=== PATIENT | male | born 1980 | race African-American/Black ===

== ENCOUNTER 2022-08-10 20:55 | Inpatient (IN) | payer OTHER ==
[2022-08-10 21:24] VITALS: BMI 30.6
[2022-08-10] MEDS ORDERED: IBUPROFEN 600 MG TABLET (FP) PO PRN (21:50)
[2022-08-10] MEDS ORDERED: BISMUTH SUBSALICYLATE 524 MG/30 ML PO PRN (21:50)
[2022-08-10] MEDS ORDERED: POLYETHYLENE GLYCOL (HEALTHYLAX) 3350 17 GM PACKET PO PRN (21:50)
[2022-08-10] MEDS ORDERED: NALOXONE HCL (KLOXXADO) 8 MG SPRAY NS PRN (21:50)
[2022-08-10] MEDS ORDERED: LOPERAMIDE HCL 2 MG CAPSULE PO PRN (21:50)
[2022-08-10] MEDS ORDERED: BENZOCAINE/MENTHOL (CHLORASEPTIC ) LOZENGE MM PRN (21:50)
[2022-08-10] MEDS ORDERED: DICYCLOMINE HCL 10 MG CAPSULE PO PRN (21:50)
[2022-08-10] MEDS ORDERED: MAG HYDROX/AL HYDROX/SIMETH 30 ML UNIT-DOSE CUP PO PRN (21:50)
[2022-08-10] MEDS ORDERED: hydrOXYzine PAMOATE 25 MG CAPSULE (FP) PO PRN (21:50)
[2022-08-10] MEDS ORDERED: MAGNESIUM HYDROX 2400MG/30ML ORAL SUSPENSION 30 ML CUP PO PRN (21:50)
[2022-08-10] MEDS ORDERED: ACETAMINOPHEN 325 MG TABLET (FP) PO PRN ×2 (21:50)
[2022-08-10] MEDS ORDERED: METHOCARBAMOL 500 MG TABLET PO PRN (21:50)
[2022-08-10] MEDS ORDERED: IBUPROFEN 400 MG TABLET (FP) PO PRN (21:50)
[2022-08-10] MEDS ORDERED: ONDANSETRON *ODT* 4 MG TABLET SL PRN (21:50)
[2022-08-10] MEDS ORDERED: NICOTINE POLACRILEX 2 MG GUM BUC PRN (21:50)
[2022-08-10] MEDS: THIAMINE HCL 100 MG TABLET (FP) PO SCH (23:42)
[2022-08-10] MEDS: MELATONIN 5 MG TABLETS PO SCH (23:42)
[2022-08-11] MEDS: NICOTINE 14 MG/24 HOURS TOPICAL PATCH TD SCH (10:24)
[2022-08-11] MEDS: PRENATAL VITAMINS W/ FOLIC ACID TABLET (FP) PO SCH (10:24)
[2022-08-11 16:01] LABS: ALBUMIN 3.2 g/dl (3.4-5.0); BLOOD UREA NITROGEN 16.2 mg/dL (7-18); CREATININE 1.2 mg/dL (0.55-1.3)
[2022-08-11 16:02] LABS: CALCIUM 9.1 mg/dL (8.5-10.1)
[2022-08-11 16:04] LABS: BILIRUBIN,TOTAL 0.3 mg/dL (0.2-1); TOT PROT 6.1 g/dl (6.4-8.2)
[2022-08-11 16:10] LABS: HEMATOCRIT 41.1 % (35.4-49); HEMOGLOBIN 13.6 GM/dL (11.7-16.9); MCH 32.2 pg (25.7-33.7); MCHC 33.1 g/dl (32.0-35.9); MEAN CELL VOLUME 97.2 fl (80-96); PLATELET COUNT 253 10^3/uL (134-434); RBC 4.23 M/mm3 (4.00-5.60); RDW 13.7 % (11.9-15.9); WHITE BLOOD COUNT 5.4 K/mm3 (4.0-10.0)
[2022-08-11 21:28] VITALS: RESP 18; TEMP 97.3
[2022-08-11] MEDS ORDERED: QUEtiapine FUMARATE 100 MG TABLET (FP) PO SCH (22:00)
[2022-08-11 22:43] VITALS: BP 168/96; PULSE 75
[2022-08-11] MEDS: MELATONIN 5 MG TABLETS PO SCH (22:49)
[2022-08-11] MEDS: THIAMINE HCL 100 MG TABLET (FP) PO SCH (22:49)
[2022-08-12] MEDS: PRENATAL VITAMINS W/ FOLIC ACID TABLET (FP) PO SCH (09:30)
[2022-08-12] MEDS: NICOTINE 14 MG/24 HOURS TOPICAL PATCH TD SCH (09:31)
== END 2022-08-12 10:56 | disposition home or self-care (01) | DRG 774 ==
LOC: YASAS 20:55 → Y6N 21:42 → UNDOADMIN 21:42 → Y3N 23:26 → Y6N 23:26
PROVIDERS: ADMIT Allergy & Immunology; ATTEND Family Medicine
PROC: HZ2ZZZZ Detoxification Services for Substance Abuse Treatment (ICD-10-PCS; principal; 2022-08-10)
DX: F10.20 Alcohol dependence, uncomplicated (principal); F14.20 Cocaine dependence, uncomplicated; F16.20 Hallucinogen dependence, uncomplicated; F12.20 Cannabis dependence, uncomplicated; F17.210 Nicotine dependence, cigarettes, uncomplicated; F19.24 Other psychoactive substance dependence with psychoactive substance-induced mood disorder; F43.10 Post-traumatic stress disorder, unspecified; E11.9 Type 2 diabetes mellitus without complications; M54.50 Low back pain, unspecified; Z91.199 Patient's noncompliance with other medical treatment and regimen due to unspecified reason
CPT/HCPCS: 36415; 80053; 85027; 86780; 87811; C9803-CS; U0003; U0005

== ENCOUNTER 2022-08-20 04:28 | Inpatient (IN) | payer OTHER ==
[2022-08-20 05:21] VITALS: RESP 18; BMI 29.5
[2022-08-20] MEDS ORDERED: ACETAMINOPHEN 325 MG TABLET (FP) PO PRN ×2 (05:28)
[2022-08-20] MEDS ORDERED: MAG HYDROX/AL HYDROX/SIMETH 30 ML UNIT-DOSE CUP PO PRN (05:28)
[2022-08-20] MEDS ORDERED: NICOTINE POLACRILEX 2 MG GUM BUC PRN (05:28)
[2022-08-20] MEDS ORDERED: LOPERAMIDE HCL 2 MG CAPSULE PO PRN (05:28)
[2022-08-20] MEDS ORDERED: ONDANSETRON *ODT* 4 MG TABLET SL PRN (05:28)
[2022-08-20] MEDS ORDERED: IBUPROFEN 600 MG TABLET (FP) PO PRN (05:28)
[2022-08-20] MEDS ORDERED: METHOCARBAMOL 500 MG TABLET PO PRN (05:28)
[2022-08-20] MEDS ORDERED: hydrOXYzine PAMOATE 25 MG CAPSULE (FP) PO PRN (05:28)
[2022-08-20] MEDS ORDERED: BISMUTH SUBSALICYLATE 524 MG/30 ML PO PRN (05:28)
[2022-08-20] MEDS ORDERED: MAGNESIUM HYDROX 2400MG/30ML ORAL SUSPENSION 30 ML CUP PO PRN (05:28)
[2022-08-20] MEDS ORDERED: IBUPROFEN 400 MG TABLET (FP) PO PRN (05:28)
[2022-08-20] MEDS ORDERED: BENZOCAINE/MENTHOL (CHLORASEPTIC ) LOZENGE MM PRN (05:28)
[2022-08-20] MEDS ORDERED: DICYCLOMINE HCL 10 MG CAPSULE PO PRN (05:28)
[2022-08-20] MEDS ORDERED: NALOXONE HCL (KLOXXADO) 8 MG SPRAY NS PRN (05:28)
[2022-08-20] MEDS ORDERED: POLYETHYLENE GLYCOL (HEALTHYLAX) 3350 17 GM PACKET PO PRN (05:28)
[2022-08-20 06:10] VITALS: BP 130/82; PULSE 78; TEMP 97.5
[2022-08-20] MEDS ORDERED: NICOTINE 14 MG/24 HOURS TOPICAL PATCH TD SCH (10:00)
[2022-08-20] MEDS ORDERED: PRENATAL VITAMINS W/ FOLIC ACID TABLET (FP) PO SCH (10:00)
[2022-08-20 11:59] LABS: HEMATOCRIT 41.1 % (35.4-49); HEMOGLOBIN 13.6 GM/dL (11.7-16.9); MCH 32.1 pg (25.7-33.7); MCHC 33.2 g/dl (32.0-35.9); MEAN CELL VOLUME 96.8 fl (80-96); PLATELET COUNT 250 10^3/uL (134-434); RBC 4.25 M/mm3 (4.00-5.60); RDW 13.4 % (11.9-15.9)
[2022-08-20 13:31] LABS: CREATININE 1.4 mg/dL (0.55-1.3)
[2022-08-20 13:33] LABS: TOT PROT 6.6 g/dl (6.4-8.2)
[2022-08-20 13:41] LABS: BLOOD UREA NITROGEN 17.9 mg/dL (7-18)
[2022-08-20 13:42] LABS: ALBUMIN 3.5 g/dl (3.4-5.0)
[2022-08-20 13:45] LABS: CALCIUM 9.7 mg/dL (8.5-10.1)
[2022-08-20 13:55] LABS: BILIRUBIN,TOTAL 0.5 mg/dL (0.2-1)
[2022-08-20] MEDS ORDERED: MELATONIN 5 MG TABLETS PO SCH (22:00)
[2022-08-20] MEDS ORDERED: THIAMINE HCL 100 MG TABLET (FP) PO SCH (22:00)
== END 2022-08-20 11:20 | disposition home or self-care (01) | DRG 774 ==
LOC: YASAS 04:28 → Y6N 05:39
PROVIDERS: ADMIT Allergy & Immunology; ATTEND Allergy & Immunology
PROC: HZ2ZZZZ Detoxification Services for Substance Abuse Treatment (ICD-10-PCS; principal; 2022-08-20)
DX: F10.230 Alcohol dependence with withdrawal, uncomplicated (principal); F14.20 Cocaine dependence, uncomplicated; F12.20 Cannabis dependence, uncomplicated; F16.90 Hallucinogen use, unspecified, uncomplicated; F17.210 Nicotine dependence, cigarettes, uncomplicated; F19.24 Other psychoactive substance dependence with psychoactive substance-induced mood disorder; F41.9 Anxiety disorder, unspecified; E11.9 Type 2 diabetes mellitus without complications; Z79.84 Long term (current) use of oral hypoglycemic drugs; M54.50 Low back pain, unspecified; G89.29 Other chronic pain; Z28.310 Unvaccinated for COVID-19; Z28.9 Immunization not carried out for unspecified reason; Z91.199 Patient's noncompliance with other medical treatment and regimen due to unspecified reason; Z59.00 Homelessness unspecified
CPT/HCPCS: 36415; 80053; 82962; 85027; 86780; C9803-CS; U0003; U0005

== ENCOUNTER 2022-10-27 01:50 | Inpatient (IN) | payer OTHER ==
[2022-10-27 02:46] VITALS: BMI 28.5
[2022-10-27] MEDS ORDERED: LOPERAMIDE HCL 2 MG CAPSULE PO PRN (03:11)
[2022-10-27] MEDS ORDERED: P-EPHED 60MG/TRIPROLIDI 2.5MG TABLET PO PRN (03:11)
[2022-10-27] MEDS ORDERED: ACETAMINOPHEN 325 MG TABLET (FP) PO PRN (03:11)
[2022-10-27] MEDS ORDERED: POLYETHYLENE GLYCOL (HEALTHYLAX) 3350 17 GM PACKET PO PRN (03:11)
[2022-10-27] MEDS ORDERED: NICOTINE 10 MG CARTRIDGE (INHALER) IH PRN (03:11)
[2022-10-27] MEDS ORDERED: NICOTINE POLACRILEX 2 MG GUM BC PRN (03:11)
[2022-10-27] MEDS ORDERED: guaiFENesin 600 MG TABLET.ER (FP) PO PRN (03:11)
[2022-10-27] MEDS ORDERED: BENZOCAINE/MENTHOL (CHLORASEPTIC ) LOZENGE MM PRN (03:11)
[2022-10-27] MEDS ORDERED: MAG HYDROX/AL HYDROX/SIMETH 30 ML UNIT-DOSE CUP PO PRN (03:11)
[2022-10-27] MEDS ORDERED: BENZONATATE 200 MG CAPSULE PO PRN (03:11)
[2022-10-27] MEDS ORDERED: MAGNESIUM HYDROX 2400MG/30ML ORAL SUSPENSION 30 ML CUP PO PRN (03:11)
[2022-10-27] MEDS ORDERED: IBUPROFEN 600 MG TABLET (FP) PO PRN (03:11)
[2022-10-27] MEDS ORDERED: TUBERCULIN PPD 5 TU/0.1ML SYRINGE (IN PATIENT USE ONLY) ID ONE (05:00)
[2022-10-27] MEDS ORDERED: TUBERCULIN PPD 5 TU/0.1ML VIAL ID ONE (07:10)
[2022-10-27] MEDS: PRENATAL VITAMINS W/ FOLIC ACID TABLET (FP) PO SCH (11:00)
[2022-10-27 11:14] LABS: HEMATOCRIT 42.7 % (35.4-49); HEMOGLOBIN 14.5 GM/dL (11.7-16.9); MCH 32.6 pg (25.7-33.7); MEAN CELL VOLUME 95.8 fl (80-96); MEAN PLT VOLUME 8.2 fl (7.5-11.1); PLATELET COUNT 231 10^3/uL (134-434); RBC 4.46 M/mm3 (4.00-5.60); RDW 13.7 % (11.9-15.9)
[2022-10-27 11:24] LABS: CALCIUM 9.1 mg/dL (8.5-10.1)
[2022-10-27 11:26] LABS: ALBUMIN 3.6 g/dl (3.4-5.0)
[2022-10-27 11:28] LABS: CREATININE 1.1 mg/dL (0.55-1.3)
[2022-10-27 11:29] LABS: TOT PROT 6.8 g/dl (6.4-8.2)
[2022-10-27] MEDS ORDERED: ONDANSETRON *ODT* 4 MG TABLET SL ONE (17:01)
[2022-10-27] MEDS: METHOCARBAMOL 500 MG TABLET PO PRN (17:19)
[2022-10-27] MEDS: THIAMINE HCL 100 MG TABLET (FP) PO SCH (21:44)
[2022-10-27] MEDS: IBUPROFEN 400 MG TABLET (FP) PO PRN (21:46)
[2022-10-27] MEDS ORDERED: MELATONIN 5 MG TABLETS PO SCH (22:00)
[2022-10-28] MEDS: PRENATAL VITAMINS W/ FOLIC ACID TABLET (FP) PO SCH (10:09)
[2022-10-28] MEDS: METHOCARBAMOL 500 MG TABLET PO PRN (11:27)
[2022-10-28] MEDS: IBUPROFEN 400 MG TABLET (FP) PO PRN (11:27)
[2022-10-28] MEDS ORDERED: hydrOXYzine PAMOATE 50 MG CAPSULE (FP) PO PRN (11:53)
[2022-10-28 11:56] LABS: EPI CELLS 19 /uL (0-25.1); HYALINE CASTS 9 /uL (0-3.1); URINE APPEARANCE CLOUDY; URINE BACTERIA 13 /uL (0-1359); URINE BILIRUBIN 1+ (NEGATIVE); URINE COLOR DK YELLOW; URINE GLUCOSE (UA) NEGATIVE (NEGATIVE); URINE KETONE 1+ (NEGATIVE); URINE LEUK ESTERASE NEGATIVE (NEGATIVE); URINE NITRITE NEGATIVE (NEGATIVE); URINE PROTEIN 1+ (NEGATIVE); URINE RBC 11 /uL (0-23.9); URINE WBC 36 /uL (0-25.8)
[2022-10-28] MEDS ORDERED: QUEtiapine FUMARATE 50 MG TABLET PO ONE (12:04)
[2022-10-28] MEDS: QUEtiapine FUMARATE 100 MG TABLET (FP) PO SCH (23:08)
[2022-10-28] MEDS: THIAMINE HCL 100 MG TABLET (FP) PO SCH (23:08)
[2022-10-29 07:34] VITALS: RESP 18
[2022-10-29] MEDS: PRENATAL VITAMINS W/ FOLIC ACID TABLET (FP) PO SCH (11:24)
[2022-10-29] MEDS: QUEtiapine FUMARATE 50 MG TABLET PO SCH (11:24)
[2022-10-29] MEDS: QUEtiapine FUMARATE 100 MG TABLET (FP) PO SCH (21:13)
[2022-10-29] MEDS: THIAMINE HCL 100 MG TABLET (FP) PO SCH (21:14)
[2022-10-30 08:08] VITALS: BP 129/82; PULSE 78; TEMP 98.4
[2022-10-30] MEDS: QUEtiapine FUMARATE 50 MG TABLET PO SCH (09:52)
[2022-10-30] MEDS: PRENATAL VITAMINS W/ FOLIC ACID TABLET (FP) PO SCH (09:52)
== END 2022-10-30 10:00 | disposition left against medical advice (07) | DRG 770 ==
LOC: YASAS 01:50 → Y5N 04:52
PROVIDERS: ADMIT Allergy & Immunology; ATTEND Psychiatry & Neurology Pain Medicine
PROC: HZ42ZZZ Group Counseling for Substance Abuse Treatment, Cognitive-Behavioral (ICD-10-PCS; principal; 2022-10-27)
DX: F10.20 Alcohol dependence, uncomplicated (principal); F14.20 Cocaine dependence, uncomplicated; F16.20 Hallucinogen dependence, uncomplicated; F17.210 Nicotine dependence, cigarettes, uncomplicated; F19.282 Other psychoactive substance dependence with psychoactive substance-induced sleep disorder; F19.24 Other psychoactive substance dependence with psychoactive substance-induced mood disorder; F39 Unspecified mood [affective] disorder; F43.10 Post-traumatic stress disorder, unspecified; E11.9 Type 2 diabetes mellitus without complications; Z79.84 Long term (current) use of oral hypoglycemic drugs; M54.50 Low back pain, unspecified; G89.29 Other chronic pain; Z56.0 Unemployment, unspecified; Z59.00 Homelessness unspecified; Z28.310 Unvaccinated for COVID-19; Z28.9 Immunization not carried out for unspecified reason
CPT/HCPCS: 36415; 80053; 81003; 85027; 86780; C9803-CS; Q0162; U0003; U0005